=== PATIENT | male | born 1990 | race Caucasian/White ===

== ENCOUNTER 2017-11-02 19:05 | Emergency (ER) | payer OTHER ==
[~2017-11-02] VITALS: Ht 160 cm; Wt 64.0 kg
[2017-11-02 19:19] VITALS: TEMP 36.9; O2SAT 96; Ht 160 cm; Wt 64.0 kg
[2017-11-02] MEDS ORDERED: OXYCODONE/ACETAMINOPHEN 5-325 TAB PO STA (19:30)
--- NOTE | 2017-11-02 20:40 | DIAGNOSTIC IMAGING REPORT ---
THORACIC SPINE 3 VIEWS CLINICAL HISTORY: Fall with thoracic back pain. FINDINGS: AP, lateral, and swimmer's views of the thoracic spine are obtained. No prior studies are available for comparison at the time of dictation. The skeletal structures are well mineralized. There is no radiographic evidence of fracture or malalignment involving the thoracic spine. Vertebral body height and alignment are maintained. The disc spaces are preserved. The transverse processes and pedicles are grossly intact as seen on the frontal view. The imaged lung parenchyma appears clear. IMPRESSION: No acute bony abnormality is seen involving the thoracic spine. Electronically signed by: Sherman Ramirez M.D. 11/02/2017 8:38 PM Dictated Date/Time: 11/02/2017 8:38 PM
--- NOTE | 2017-11-02 20:50 | EMERGENCY ROOM VISIT NOTE ---
History First contact with patient: 19:23 Chief Complaint: BACK INJURY Stated Complaint: FELL DOWN STEPS, HURT BACK History of Present Illness The patient is a 26 year old male who presents to the Emergency Room via private vehicle accompanied by female with complaints of "fell down steps, her back". The patient states that earlier today he was walking down an icy set of steps, when he slipped, and caught himself prior to falling but notes now he has pain in the mid back. He rates the pain at this time as a 6/10. Review of Systems A complete 6-point Review of Systems was discussed with the patient, with pertinent positives and negatives listed in the History of Present Illness. All remaining Review of Systems questions can be considered negative unless otherwise specified. Past Medical/Surgical History No pertinent Family History No pertinent. Social History Smoking Status: Current Every Day Smoker Pt. currently lives locally. Current/Historical Medications Scheduled PRN Oxycodone/Acetaminophen 5MG/325MG (Percocet 5MG/325MG), 1 TAB PO Q6 PRN for Pain Physical Exam Vital Signs Date Time Temp Pulse Resp B/P (MAP) Pulse Ox O2 Delivery O2 Flow Rate FiO2 18 21:20 72 15 118/68 18 19:19 36.9 74 16 129/81 96 Room Air Physical Exam VITAL SIGNS - Vital signs and nursing notes were reviewed. Stable. GENERAL -26-year-old male appearing his stated age who is in no acute distress. Communicates well with provider and answers questions appropriately. SKIN - Without rashes. No petechial rashes. HEAD - NC/AT. NECK - Neck with FROM. No C-spine tenderness. MUSCULOSKELETAL: Minimal tenderness in the thoracic spine and paraspinous muscles are. No superior or inferior tenderness in this region. LUNGS - Chest wall symmetric without accessory muscle use, intercostals retractions, or central cyanosis. Normal vesicular breath sounds CTA B/L. No wheezes, rales, or rhonchi appreciated. CARDIAC - RRR with S1/S2. No murmur, rubs, or gallops appreciated. Medical Decision & Procedures ER Provider Diagnostic Interpretation: THORACIC SPINE 3 VIEWS CLINICAL HISTORY: Fall with thoracic back pain. FINDINGS: AP, lateral, and swimmer's views of the thoracic spine are obtained. No prior studies are available for comparison at the time of dictation. The skeletal structures are well mineralized. There is no radiographic evidence of fracture or malalignment involving the thoracic spine. Vertebral body height and alignment are maintained. The disc spaces are preserved. The transverse processes and pedicles are grossly intact as seen on the frontal view. The imaged lung parenchyma appears clear. IMPRESSION: No acute bony abnormality is seen involving the thoracic spine. Electronically signed by: Sherman Ramirez M.D. 11/02/2017 8:38 PM Dictated Date/Time: 11/02/2017 8:38 PM Medications Administered Medications (Trade) Dose Ordered Sig/Jenna Route Start Time Stop Time Status Last Admin Dose Admin Oxycodone/ Acetaminophen (Percocet 5-325mg Tab) 1 tab NOW STAT PO 11/02/17 19:30 11/02/17 19:31 DC 11/02/17 19:39 1 TAB Medical Decision Patient was seen and evaluated as above. He presents to us today with mid back pain. I suspect he likely has a strain of the musculature however he does have bony tenderness in the region. I did elect to obtain thoracic plain films. These are negative for acute process. I suspect muscle skeletal strain. He was given Percocet for pain as well as a small home pack and prescription. No record was found in the [place] drug monitoring system. He does appear stable for outpatient management. He was educated upon management, educated upon worrisome symptoms which to return, had motions in spite of discharge, and was discharged home in good condition. In evaluation treatment this patient the following differential diagnoses pertaining: Fracture, dislocation, strain, among others. Impression Primary Impression: Strain of thoracic region Departure Information Dispostion Home / Self-Care Condition GOOD Prescriptions Oxycodone/Acetaminophen 5MG/325MG (PERCOCET 5MG/325MG) Tab 1 TAB PO Q6 Y for Pain, #12 TAB For Initial Treatment Prov: Timi Gordon PA-C 11/02/17 Referrals No Doctor, Assigned (PCP) Barney Li D.O. Patient Instructions My [facility] Additional Instructions You have been treated in the Emergency Department for Back Pain. You have received pain medicine in the emergency department which impairs your ability to operate a vehicle. It is illegal for you to drive after receiving these medicines. You have been prescribed PERCOCET to be used for pain control. This is a narcotic medication. You cannot drive or consume alcohol while on this medicine. This medicine should only be used for pain that cannot be controlled with fdxh-eku-cyqwzmh pain medicines. For pain control, you can use the following yznk-jtj-[id number] medicines: - Regular strength (325mg/tab) Tylenol (acetaminophen) 2 tabs every 4-6 hours as needed. Do not exceed 12 tablets in a 24 hour period. Avoid taking more than 3 grams (3000 mg) of Tylenol per day. This includes any other sources of acetaminophen you may take on a regular basis. Please none with the Percocet - Regular strength (200 mg/tab) Advil (ibuprofen) 1-2 tabs every 4-6 hours as needed. Do not exceed a dose of 3200 mg per day. If this is an acute injury, ice can be applied to the area of pain for the first 3 days to help decrease pain and inflammation. After the first 3 days, a heating pad can be used over the area for continued soothing relief. You should schedule a follow-up appointment in 2-3 days with your Primary Care Provider for further evaluation and treatment of your back pain. Return to the Emergency Department if your current symptoms worsen despite treatment course outlined above, or if you develop any of the following symptoms : intractable pain despite aforementioned treatment course, loss of control of your bowel or bladder, numbness or tingling in your groin, or development of a fever.
[2017-11-02] MEDS ORDERED: PERCOCET HOME PACK PO STA (20:58)
[2017-11-02] MEDS ORDERED: OXYC-57 PO (21:00)
[2017-11-02 21:20] VITALS: BP 118/68; PULSE 72
== END 2017-11-02 21:20 | disposition home or self-care (01) ==
LOC: C.EDB 19:07 → C.EDD 21:20
DX: S29.012A Strain of muscle and tendon of back wall of thorax, initial encounter (principal); M54.9 Dorsalgia, unspecified; W00.1XXA Fall from stairs and steps due to ice and snow, initial encounter; F17.210 Nicotine dependence, cigarettes, uncomplicated; Y92.89 Other specified places as the place of occurrence of the external cause

== ENCOUNTER 2017-11-04 18:27 | Emergency (ER) | payer OTHER ==
[~2017-11-04] VITALS: Ht 160 cm; Wt 64.2 kg
[~2017-11-04 18:27] MED LIST: OXYC-57 PO
[2017-11-04 18:42] VITALS: TEMP 36.8; Ht 160 cm; Wt 64.2 kg
[2017-11-04] MEDS ORDERED: ONDANSETRON 4MG OD TAB PO STA (19:00)
[2017-11-04 19:26] LABS: BASO % 0.3 %; BASO ABS # 0.06 K/uL (0-0.2); EOS % 0.5 %; EOS ABS # 0.09 K/uL (0-0.5); HEMATOCRIT 48.1 % (42-52); HEMOGLOBIN 17.4 g/dL (14.0-18.0); IG# 0.04 K/uL (0.00-0.02); MEAN CELL VOLUME 90.9 fL (80-100); MEAN CORPUSCULAR HEMOGLOBIN 32.9 pg (25-34); MEAN CORPUSCULAR HGB CONC 36.2 g/dl (32-36); MEAN PLATELET VOLUME 10.3 fL (7.4-10.4); MONO % 5.5 %; MONO ABS # 0.97 K/uL (0.11-0.59); NEUT % 81.5 %; NEUT ABS # 14.25 K/uL (1.4-6.5); PLATELET COUNT 258 K/uL (130-400); RED CELL DISTRIBUTION WIDTH CV 12.9 % (11.5-14.5); RED CELL DISTRIBUTION WIDTH SD 42.5 fL (36.4-46.3); WHITE BLOOD COUNT 17.51 K/uL (4.8-10.8)
[2017-11-04 19:43] LABS: ALBUMIN 4.4 gm/dl (3.4-5.0); CREATININE 1.11 mg/dl (0.60-1.40); POTASSIUM 3.7 mmol/L (3.5-5.1)
--- NOTE | 2017-11-04 19:44 | DIAGNOSTIC IMAGING REPORT ---
CERVICAL SPINE 3 VIEWS CLINICAL HISTORY: Neck pain. Fall 2 days ago. FINDINGS: AP, lateral, and odontoid views of the cervical spine are obtained. No prior studies are available for comparison at the time of dictation. The skeletal structures are well mineralized. There is no radiographic evidence of fracture or subluxation. The odontoid process and lateral masses appear intact on the open mouth view. The spinolaminar line is preserved. Vertebral body height and alignment are maintained. The spinous processes appear intact. The intervertebral disc spaces are normal. The prevertebral soft tissues are within normal limits. Visualized apical lung parenchyma appears clear. IMPRESSION: There is no radiographic evidence of fracture or subluxation involving the cervical spine. Electronically signed by: Sherman Ramirez M.D. 11/04/2017 7:43 PM Dictated Date/Time: 11/04/2017 7:42 PM
[2017-11-04 19:45] LABS: TOTAL PROTEIN 7.3 gm/dl (6.4-8.2)
--- NOTE | 2017-11-04 19:47 | EMERGENCY ROOM VISIT NOTE ---
History First contact with patient: 18:47 Chief Complaint: NECK PAIN Stated Complaint: "my neck hurts and I'm sick" History of Present Illness The patient is a 26 year old male who presents to the Emergency Room with complaints of neck pain, nausea, vomiting which began today. The patient states he experienced a fall 2 days prior, and was seen in the emergency department. Upon further questioning, the patient did not actually fall, however slipped on ice and twisted, catching himself before he landed on the ground. He denies any head injury. He states this afternoon, he began experiencing neck pain which she associates with the injury early this week. He states he has also been nauseated and vomiting and sleeping throughout the day. He states he did vomit 4 times since proximally 4:00 this afternoon. He has had chills, but denies any known fever. He denies any chest pain, dyspnea, abdominal pain, diarrhea, constipation, cough, coughing up sputum, or congestion. He states he has not been able to keep any food or fluids down. He has taken no medications for his symptoms. Review of Systems A complete 10 point review of systems was reviewed with the patient with pertinent positives and negatives as per history of present illness. All else were negative. Past Medical/Surgical History Back pain, "I don't know" Social History Smoking Status: Current Every Day Smoker Smokeless Tobacco Use: No Alcohol Use: none Drug Use: none Marital Status: in relationship Housing Status: lives with significant other Current/Historical Medications Scheduled Ondasetron Odt (Zofran Odt), 4 MG SL Q6H Scheduled PRN Oxycodone/Acetaminophen 5MG/325MG (Percocet 5MG/325MG), 1 TAB PO Q6 PRN for Pain Physical Exam Vital Signs Date Time Temp Pulse Resp B/P (MAP) Pulse Ox O2 Delivery O2 Flow Rate FiO2 11/04/17 20:33 67 16 132/78 98 Room Air 11/04/17 18:42 36.8 80 20 122/76 97 Room Air Physical Exam VITALS: Vitals are noted on the nurse's note and reviewed by myself. Vital signs stable. GENERAL: This is a 26-year-old white male, ill-appearing, but nontoxic, in no acute distress, nondiaphoretic, well-developed well-nourished. SKIN: The skin was without rashes, erythema, edema, or bruising. There is no tenting of the skin. Capillary reflex less than 2 seconds. HEAD: Normocephalic atraumatic. EARS: External auditory canals clear, tympanic membranes pearly irving without erythema or effusion bilaterally. EYES: Pupils equal round and reactive to light and accommodation. Conjunctivae without injection, sclerae without icterus. Extraocular movements intact. NOSE: Patent, turbinates without inflammation or discharge. No sinus tenderness. MOUTH: Mucous membranes moist. Tonsils are not enlarged. Pharynx without erythema or exudate. Uvula midline. Airway patent. Tongue does not deviate. NECK: Supple without nuchal rigidity, but he is complaining of tenderness in the cervical spine and paraspinous muscles. No lymphadenopathy. No thyromegaly. No JVD. HEART: Regular rate and rhythm without murmurs gallops or rubs. LUNGS: Clear to auscultation bilaterally without wheezes, rales or rhonchi. No dullness to percussion. No retractions or accessory muscle use. ABDOMEN: Positive bowel sounds x 4. Normal tympanic percussion. Soft, nontender, without masses or organomegaly. Denney sign negative. No guarding or rebound tenderness. MUSCULOSKELETAL: No muscle atrophy, erythema, or edema noted. Full range of motion without joint tenderness in all extremities. No tenderness to palpation. Normal gait. Strength 5/5 throughout. NEURO: Patient was alert and oriented to person place and time. Normal sensation to light and sharp touch. Deep tendon reflexes 2+ throughout. No focal neurological deficits. Medical Decision & Procedures ER Provider Diagnostic Interpretation: CBC did show leukocytosis of 17,000. No anemia. CMP did not show any significant renal, hepatic, electrolyte abnormalities. Urinalysis was negative for blood or signs of infection CERVICAL SPINE 3 VIEWS CLINICAL HISTORY: Neck pain. Fall 2 days ago. FINDINGS: AP, lateral, and odontoid views of the cervical spine are obtained. No prior studies are available for comparison at the time of dictation. The skeletal structures are well mineralized. There is no radiographic evidence of fracture or subluxation. The odontoid process and lateral masses appear intact on the open mouth view. The spinolaminar line is preserved. Vertebral body height and alignment are maintained. The spinous processes appear intact. The intervertebral disc spaces are normal. The prevertebral soft tissues are within normal limits. Visualized apical lung parenchyma appears clear. IMPRESSION: There is no radiographic evidence of fracture or subluxation involving the cervical spine. Electronically signed by: Sherman Ramirez M.D. 11/04/2017 7:43 PM Dictated Date/Time: 11/04/2017 7:42 PM Laboratory Results 11/04/17 19:05 Red Blood Count 5.29, Mean Corpuscular Volume 90.9, Mean Corpuscular Hemoglobin 32.9, Mean Corpuscular Hemoglobin Concent 36.2, Mean Platelet Volume 10.3, Neutrophils (%) (Auto) 81.5, Lymphocytes (%) (Auto) 12.0, Monocytes (%) (Auto) 5.5, Eosinophils (%) (Auto) 0.5, Basophils (%) (Auto) 0.3, Neutrophils # (Auto) 14.25, Lymphocytes # (Auto) 2.10, Monocytes # (Auto) 0.97, Eosinophils # (Auto) 0.09, Basophils # (Auto) 0.06 11/04/17 19:05 Test 11/04/17 19:05 White Blood Count 17.51 K/uL (4.8-10.8) Red Blood Count 5.29 M/uL (4.7-6.1) Hemoglobin 17.4 g/dL (14.0-18.0) Hematocrit 48.1 % (42-52) Mean Corpuscular Volume 90.9 fL (80-100) Mean Corpuscular Hemoglobin 32.9 pg (25-34) Mean Corpuscular Hemoglobin Concent 36.2 g/dl (32-36) Platelet Count 258 K/uL (130-400) Mean Platelet Volume 10.3 fL (7.4-10.4) Neutrophils (%) (Auto) 81.5 % Lymphocytes (%) (Auto) 12.0 % Monocytes (%) (Auto) 5.5 % Eosinophils (%) (Auto) 0.5 % Basophils (%) (Auto) 0.3 % Neutrophils # (Auto) 14.25 K/uL (1.4-6.5) Lymphocytes # (Auto) 2.10 K/uL (1.2-3.4) Monocytes # (Auto) 0.97 K/uL (0.11-0.59) Eosinophils # (Auto) 0.09 K/uL (0-0.5) Basophils # (Auto) 0.06 K/uL (0-0.2) RDW Standard Deviation 42.5 fL (36.4-46.3) RDW Coefficient of Variation 12.9 % (11.5-14.5) Immature Granulocyte % (Auto) 0.2 % Immature Granulocyte # (Auto) 0.04 K/uL (0.00-0.02) Anion Gap 5.0 mmol/L (3-11) Est Creatinine Clear Calc Drug Dose 80.4 ml/min Estimated GFR () 104.9 Estimated GFR (Non- 90.5 BUN/Creatinine Ratio 8.7 (10-20) Calcium Level 9.0 mg/dl (8.5-10.1) Total Bilirubin 0.2 mg/dl (0.2-1) Aspartate Amino Transf (AST/SGOT) 11 U/L (15-37) Alanine Aminotransferase (ALT/SGPT) 23 U/L (12-78) Alkaline Phosphatase 83 U/L (45-117) Total Protein 7.3 gm/dl (6.4-8.2) Albumin 4.4 gm/dl (3.4-5.0) Globulin 2.9 gm/dl (2.5-4.0) Albumin/Globulin Ratio 1.5 (0.9-2) Medications Administered Medications (Trade) Dose Ordered Sig/Jenna Route Start Time Stop Time Status Last Admin Dose Admin Ondansetron HCl (Zofran Odt) 4 mg NOW STAT PO 11/04/17 19:00 11/04/17 19:02 DC 11/04/17 19:04 4 MG ED Course The patient was seen and evaluated as above. Prior to exiting the room, the patient states he is very thirsty and does ask for a drink. He was provided with ice chips, as he has been nauseated and vomiting throughout the day. IV access was obtained, labs drawn. The patient was advised to provide a urine sample. Cervical spine x-ray was ordered and performed. This was reviewed by myself and the radiologist. I discussed the case with Dr. Villanueva, who did see and evaluate the patient. At this time, the patient excluding to her that he was told he had an elevated white blood cell count while at [facility] several months ago. Discharge instructions were reviewed, and the patient was discharged home in good condition. Medical Decision Etiologies such as cervicalgia, torticollis, abscess, osteomyelitis, fracture, metastatic disease, infection, renal colic, gastrointestinal, gastroenteritis, food poisoning, pancreatitis, cholecystitis, appendicitis, diverticulitis, as well as others were entertained. This is a 26-year-old male patient presents to the emergency department today complaining of neck pain and nausea with vomiting. The patient states the neck pain began earlier today, then he began experiencing nausea with vomiting and chills, and states he vomited 4 times in approximately 2-3 hours. He was only vomiting with food or liquid. He states he has not had much of an appetite today, but denies other infectious symptoms. While here in the emergency department, the patient was given Zofran, and did not vomit. I suspect the nausea and vomiting is related to a gastroenteritis versus food poisoning, and discussed this with the patient. I suspect his neck pain is related to a muscle strain from the near fall a few days ago. His symptoms did improve with Zofran, and when I went to reevaluate the patient, he was standing in the doorway and pacing throughout the room. The patient did request a drink, and was given some ice chips. He was are given a narcotic prescription 2 days ago, which he filled yesterday, per PDMP. He was given 3 days of narcotic pain medicine at that time, so he will not receive any more from [facility]. The patient was encouraged to follow up with a primary care provider regarding his concerns. [place] Drug Monitoring Program Search Results: patient reviewed within database Medication Reconcilliation Current Medication List: was personally reviewed by mo Blood Pressure Screening Patient's blood pressure: Normal blood pressure Impression Primary Impression: Cervicalgia Additional Impression: Nausea & vomiting Departure Information Dispostion Home / Self-Care Condition GOOD Prescriptions Ondasetron Odt (ZOFRAN ODT) 4 Mg Tab 4 MG SL Q6H for Nausea, #6 TAB Prov: Iris Brown PA-C 11/04/17 Referrals No Doctor, Assigned (PCP) Patient Instructions ED Gastroenteritis Viral, ED Neck Back Pain General, My [facility] Additional Instructions You have been treated in the Emergency Department for Neck Pain, nausea, and vomiting. I suspect a muscular strain of the neck and possible viral gastroenteritis as the cause of the nausea and vomiting. You have been prescribed Zofran to be used for any nausea or vomiting. Take as prescribed. You may take the Percocet you were previously prescribed for your neck pain as directed. This is a narcotic medication. You cannot drive or consume alcohol while on this medicine. This medicine should only be used for pain that cannot be controlled with yiag-ile-ufqyjwx pain medicines. For pain control, you can use the following kxot-jxi-hrrnukd medicines (if >12 yo): Ibuprofen(Motrin, Advil) may be used for fever or pain. Use 600mg every six hours as needed. Take with food. Avoid using more than 2400mg in a 24 hour period. Do not use 2400mg per day for more than three consecutive days without physician direction. Prolonged inappropriate use can lead to stomach upset or ulcers. (AND/OR) Acetaminophen(Tylenol) may be used for fever or pain. Use 1000mg every six hours as needed. Avoid using more than 3000mg in a 24 hour period. If this is an acute injury, ice can be applied to the area of pain for the first 3 days to help decrease pain and inflammation. After the first 3 days, a heating pad can be used over the area for continued soothing relief. You should schedule a follow-up appointment in 2-3 days with your Primary Care Provider for further evaluation and treatment of your neck pain. Return to the Emergency Department if your current symptoms worsen despite treatment course outlined above, or if you develop any of the following symptoms : intractable pain despite aforementioned treatment course, facial droop, slurred speech, unilateral weakness, abdominal pain, worsening nausea or vomiting, significant diarrhea, or worsening of your current symptoms. Problem Qualifiers Additional Impression: Nausea & vomiting Vomiting type: unspecified Vomiting Intractability: non-intractable Qualified Codes: R11.2 - Nausea with vomiting, unspecified
[2017-11-04] MEDS ORDERED: ONDA4TAB10 SL (20:26)
[2017-11-04 20:33] VITALS: BP 132/78; PULSE 67; O2SAT 98
== END 2017-11-04 20:35 | disposition home or self-care (01) ==
LOC: C.EDB 18:28 → C.EDC 20:35
DX: M54.2 Cervicalgia (principal); R11.2 Nausea with vomiting, unspecified; F17.200 Nicotine dependence, unspecified, uncomplicated

== ENCOUNTER 2017-12-12 22:13 | Emergency (ER) | payer OTHER ==
[~2017-12-12] VITALS: Ht 160 cm; Wt 64.9 kg
[~2017-12-12 22:13] MED LIST changes: +ONDA4TAB10 SL
[2017-12-12 22:16] VITALS: TEMP 36.9; Ht 160 cm; Wt 64.9 kg
[2017-12-12] MEDS ORDERED: ALUMINUM/MAGNESIUM SUSP 30 ML UDC PO STA (22:21)
[2017-12-12] MEDS ORDERED: METOCLOPRAMIDE HCL INJ 5 MG/ML 2 ML VIAL IV STA (22:21)
[2017-12-12] MEDS ORDERED: LIDOCAINE HCL 2% VISC SOLN 20 ML UDC PO STA (22:21)
[2017-12-12] MEDS ORDERED: DiphenhydrAMINE HCL 50 MG/ML VIAL IV STA (22:21)
[2017-12-12] MEDS ORDERED: SODIUM CHLORIDE 0.9% 1000ML 1,000 ML IV STA (22:21)
[2017-12-12 22:58] LABS: BASO % 0.5 %; BASO ABS # 0.07 K/uL (0-0.2); EOS % 1.2 %; EOS ABS # 0.16 K/uL (0-0.5); HEMATOCRIT 45.3 % (42-52); HEMOGLOBIN 16.5 g/dL (14.0-18.0); IG# 0.02 K/uL (0.00-0.02); LYMPH % 29.4 %; LYMPH ABS # 4.07 K/uL (1.2-3.4); MEAN CORPUSCULAR HGB CONC 36.4 g/dl (32-36); MEAN PLATELET VOLUME 10.6 fL (7.4-10.4); MONO % 8.1 %; MONO ABS # 1.12 K/uL (0.11-0.59); NEUT % 60.7 %; NEUT ABS # 8.42 K/uL (1.4-6.5); PLATELET COUNT 259 K/uL (130-400); RED CELL DISTRIBUTION WIDTH CV 12.8 % (11.5-14.5); WHITE BLOOD COUNT 13.86 K/uL (4.8-10.8)
--- NOTE | 2017-12-12 23:02 | DIAGNOSTIC IMAGING REPORT ---
CT OF THE HEAD WITHOUT CONTRAST CLINICAL HISTORY: Headache. COMPARISON STUDY: No previous studies for comparison. CT DOSE: 537.48 mGy.cm TECHNIQUE: Helical axial images of the head were obtained without IV contrast. Automated exposure control was utilized for the study. A dose lowering technique was utilized adhering to the principles of ALARA. FINDINGS: No acute intracranial hemorrhage, midline shift or mass effect is present. Brain volume is normal. Ventricular system is normal. The basilar cisterns are patent. There are no extra-axial collections. Beal-white differentiation is maintained. There are no findings to suggest acute dural sinus thrombosis or acute territorial infarct. There are no significant calvarial abnormalities. Visualized portions of the sinuses and the mastoid air cells are clear. IMPRESSION: No acute intracranial findings. Electronically signed by: Av Richardson M.D. 12/12/2017 11:01 PM Dictated Date/Time: 12/12/2017 10:57 PM
[2017-12-12 23:21] LABS: ALBUMIN 4.3 gm/dl (3.4-5.0); ALT/SGPT 22 U/L (12-78); BLOOD UREA NITROGEN 5 mg/dl (7-18); CALCIUM 8.6 mg/dl (8.5-10.1); CARBON DIOXIDE 27 mmol/L (21-32); CREATININE 1.24 mg/dl (0.60-1.40); GLUCOSE 66 mg/dl (70-99); POTASSIUM 3.4 mmol/L (3.5-5.1); SODIUM 139 mmol/L (136-145)
[2017-12-12 23:32] LABS: ALKALINE PHOSPHATASE 65 U/L (45-117); AST/SGOT 12 U/L (15-37); TOTAL PROTEIN 7.2 gm/dl (6.4-8.2)
[2017-12-12] MEDS ORDERED: POTASSIUM CHLORIDE 10 MEQ TABCR PO STA (23:52)
[2017-12-13 00:04] VITALS: BP 112/61; PULSE 68; O2SAT 98
--- NOTE | 2017-12-13 00:12 | EMERGENCY ROOM VISIT NOTE ---
History First contact with patient: 22:17 Chief Complaint: HEADACHE Stated Complaint: HEADACHE FOR 2 DAYS, CAUSING AGITATION History of Present Illness The patient is a 27 year old male who presents to the Emergency Room with complaints of occasional headache upset stomach and feeling agitated for the past few days. Patient denies sudden onset of headache, neck stiffness, fever, chills, cough, congestion, vomiting, diarrhea, chest pain, dyspnea, localized weakness, lightheadedness, dizziness. He is tolerating p.o. fluids and food. No drug use. No alcohol use. Review of Systems An 10 system review of systems was completed with positives and pertinent negatives listed in the HPI. Past Medical/Surgical History Back pain Social History Smoking Status: Current Every Day Smoker Alcohol Use: none Drug Use: none Marital Status: in relationship Housing Status: lives with significant other Current/Historical Medications No Active Prescriptions or Reported Meds Physical Exam Vital Signs Date Time Temp Pulse Resp B/P (MAP) Pulse Ox O2 Delivery O2 Flow Rate FiO2 12/13/17 00:04 68 18 112/61 98 Room Air 12/12/17 22:16 36.9 78 18 128/78 97 Room Air Physical Exam VITALS: Vitals are noted on the nurse's note and reviewed by myself. Vital signs stable. GENERAL: White male, in no acute distress, nondiaphoretic, well-developed well- nourished. SKIN: The skin was without rashes, erythema, edema, or bruising. There is no tenting of the skin. Capillary reflex less than 2 seconds. HEAD: Normocephalic atraumatic. EARS: External auditory canals clear, tympanic membranes pearly beal without erythema or effusion bilaterally. EYES: Pupils equal round and reactive to light and accommodation. Conjunctivae without injection, sclerae without icterus. Extraocular movements intact. NOSE: Patent, turbinates without inflammation or discharge. No sinus tenderness. MOUTH: Mucous membranes moist. Pharynx without erythema or exudate. Uvula midline. Airway patent. Tongue does not deviate. NECK: Supple without nuchal rigidity. No lymphadenopathy. No thyromegaly. Cervical spine is nontender. No JVD. HEART: Regular rate and rhythm without murmurs gallops or rubs. LUNGS: Clear to auscultation bilaterally without wheezes, rales or rhonchi. No dullness to percussion. No retractions or accessory muscle use. ABDOMEN: Positive bowel sounds x 4. Normal tympanic percussion. Soft, nontender, without masses or organomegaly. Denney sign negative. No guarding or rebound tenderness. MUSCULOSKELETAL: No muscle atrophy, erythema, or edema noted. NEURO: Patient was alert and oriented to person place and time. Normal sensation to light and sharp touch. Cranial nerves II through XII grossly intact. No prior drift. Cerebellar exam intact. No focal neurological deficits. Medical Decision & Procedures Laboratory Results 12/12/17 22:41 Red Blood Count 5.15, Mean Corpuscular Volume 88.0, Mean Corpuscular Hemoglobin 32.0, Mean Corpuscular Hemoglobin Concent 36.4, Mean Platelet Volume 10.6, Neutrophils (%) (Auto) 60.7, Lymphocytes (%) (Auto) 29.4, Monocytes (%) (Auto) 8.1, Eosinophils (%) (Auto) 1.2, Basophils (%) (Auto) 0.5, Neutrophils # (Auto) 8.42, Lymphocytes # (Auto) 4.07, Monocytes # (Auto) 1.12, Eosinophils # (Auto) 0.16, Basophils # (Auto) 0.07 12/12/17 22:41 Test 12/12/17 22:41 White Blood Count 13.86 K/uL (4.8-10.8) Red Blood Count 5.15 M/uL (4.7-6.1) Hemoglobin 16.5 g/dL (14.0-18.0) Hematocrit 45.3 % (42-52) Mean Corpuscular Volume 88.0 fL (80-100) Mean Corpuscular Hemoglobin 32.0 pg (25-34) Mean Corpuscular Hemoglobin Concent 36.4 g/dl (32-36) Platelet Count 259 K/uL (130-400) Mean Platelet Volume 10.6 fL (7.4-10.4) Neutrophils (%) (Auto) 60.7 % Lymphocytes (%) (Auto) 29.4 % Monocytes (%) (Auto) 8.1 % Eosinophils (%) (Auto) 1.2 % Basophils (%) (Auto) 0.5 % Neutrophils # (Auto) 8.42 K/uL (1.4-6.5) Lymphocytes # (Auto) 4.07 K/uL (1.2-3.4) Monocytes # (Auto) 1.12 K/uL (0.11-0.59) Eosinophils # (Auto) 0.16 K/uL (0-0.5) Basophils # (Auto) 0.07 K/uL (0-0.2) RDW Standard Deviation 41.0 fL (36.4-46.3) RDW Coefficient of Variation 12.8 % (11.5-14.5) Immature Granulocyte % (Auto) 0.1 % Immature Granulocyte # (Auto) 0.02 K/uL (0.00-0.02) Anion Gap 6.0 mmol/L (3-11) Est Creatinine Clear Calc Drug Dose 71.4 ml/min Estimated GFR () 91.1 Estimated GFR (Non- 78.6 BUN/Creatinine Ratio 4.1 (10-20) Calcium Level 8.6 mg/dl (8.5-10.1) Total Bilirubin 0.3 mg/dl (0.2-1) Direct Bilirubin < 0.1 mg/dl (0-0.2) Aspartate Amino Transf (AST/SGOT) 12 U/L (15-37) Alanine Aminotransferase (ALT/SGPT) 22 U/L (12-78) Alkaline Phosphatase 65 U/L (45-117) Total Protein 7.2 gm/dl (6.4-8.2) Albumin 4.3 gm/dl (3.4-5.0) Thyroid Stimulating Hormone (TSH) 2.120 uIu/ml (0.300-4.500) Medications Administered Medications (Trade) Dose Ordered Sig/Jenna Route Start Time Stop Time Status Last Admin Dose Admin Metoclopramide HCl (Reglan Inj) 10 mg NOW STAT IV 12/12/17 22:21 12/12/17 22:23 DC 12/12/17 22:42 10 MG Diphenhydramine HCl (Benadryl Inj) 12.5 mg NOW STAT IV 12/12/17 22:21 12/12/17 22:23 DC 12/12/17 22:42 12.5 MG Sodium Chloride 1,000 ml @ 999 mls/hr Q1H1M STAT IV 12/12/17 22:21 12/12/17 23:21 DC 12/12/17 22:43 999 MLS/HR Lidocaine HCl (Viscous Lidocaine 2% Soln) 10 ml NOW STAT PO 12/12/17 22:21 12/12/17 22:23 DC 12/12/17 22:42 10 ML Al Hydroxide/Mg Hydroxide (Maalox Susp) 30 ml NOW STAT PO 12/12/17 22:21 12/12/17 22:23 DC 12/12/17 22:42 30 ML Potassium Chloride (Klor-Con M10) 20 meq NOW STAT PO 12/12/17 23:52 12/12/17 23:53 DC 12/13/17 00:00 20 MEQ ED Course Prior records/ancillary studies reviewed and summarized above. Nursing notes reviewed. Additional history obtained from girlfriend. The patient's history was concerning fo headache and upset stomach . Differential diagnosis: Etiologies such as metabolic, infection, hypo/hyperglycemia, electrolyte abnormalities, cardiac sources, intracerebral event, toxicologic, neurologic, as well as others were entertained. Physical examination: As above. ER treatment provided: IV Lock GI cocktail, Reglan, Benadryl, peanut better and crackers On reassessment the patient felt better. Diagnostics interpretation by me: The labs revealed mild leukocytosis. No worrisome electrode abnormality. Imaging studies: CLINICAL HISTORY: Headache. COMPARISON STUDY: No previous studies for comparison. CT DOSE: 537.48 mGy.cm TECHNIQUE: Helical axial images of the head were obtained without IV contrast. Automated exposure control was utilized for the study. A dose lowering technique was utilized adhering to the principles of ALARA. FINDINGS: No acute intracranial hemorrhage, midline shift or mass effect is present. Brain volume is normal. Ventricular system is normal. The basilar cisterns are patent. There are no extra-axial collections. Beal-white differentiation is maintained. There are no findings to suggest acute dural sinus thrombosis or acute territorial infarct. There are no significant calvarial abnormalities. Visualized portions of the sinuses and the mastoid air cells are clear. IMPRESSION: No acute intracranial findings. Electronically signed by: Av Richardson M.D. 12/12/2017 11:01 PM Dictated Date/Time: 12/12/2017 10:57 PM Exam and history seem consistent with headache and upset stomach most likely from reflux. Patient felt much better after being medicated as above. He did not have an acute abdomen on exam. He was neurovascularly and neurologically intact. He was given a list of family care doctors and advised to follow-up. He was given food and his blood sugar was repeated and was 99. He was advised to return to the ER immediately for severe headache, weakness, pain, worsening signs or symptoms or as needed. He ambulated out of the air without difficulties with his girlfriend.By the evaluation outlined above emergent etiologies such as infection, electrolyte abnormalities, cardiac sources, intracerebral event, toxologic, neurologic, abnormalities blood glucose, metabolic, as well as others were deemed relatively unlikely. The pt informed about the findings as listed above. All questions were answered and pleased with the treatment. Return instructions were outlined and the patient was discharged in stable condition. Outpatient prescription management: reglan Referral: The patient was referred back to primary care physician for follow-up in 2 to 3 days for a recheck of the current condition. case reviewed with my Attending The chart was completed utilizing [employer] voice recognition software. Grammatical errors, random word insertions, pronoun errors, and incomplete sentences are an occassional consequence of this system due to software limitations, ambient noise, and hardware issues. Any formal questions or concerns about the content, text, or information contained within the body of this dictation should be directly addressed to the physician assistant administrator for clarification. Medical Decision As above Medication Reconcilliation Current Medication List: was personally reviewed by me Blood Pressure Screening Patient's blood pressure: Normal blood pressure Impression Primary Impression: Headache Additional Impressions: Hypokalemia Acid reflux Departure Information Dispostion Home / Self-Care Condition GOOD Prescriptions No Active Prescriptions or Reported Meds Referrals No Doctor, Assigned (PCP) Patient Instructions My [facility] Additional Instructions DO NOT drive, drink alcohol, operate machinery, or perform dangerous activities today. You were given medications in the ER that can affect your ability to safely function or operate a vehicle. Reglan(metoclopramide) tablets 10mg: Take one every six hours as needed for nausea. Avoid alcohol, operating machinery or dangerous equipment, working on ladders or roofs, DRIVING, or situations where being under the influence may be dangerous. Acetaminophen(Tylenol) may be used for fever or pain. Use 1000mg every six hours as needed. Avoid using more than 3000mg in a 24 hour period. Rest and drink plenty of fluids as tolerated. Slow sips of water or sports drinks are recommended instead of large amounts all at once. Continue current medications. Once your stomach is settled start with a clear liquid diet (jello, soup broth, etc.) and then advance as tolerated. You should avoid full, heavy meals for about 24 hrs from the time your symptoms resolved. Return to the ER for persistent vomiting, fevers, abdominal pain, chest pains, difficulty breathing, black or bloody stools, worsening of your condition, or as needed. Follow up with your primary physician in 2-3 days for a recheck of your current condition. Problem Qualifiers Primary Impression: Headache Headache type: unspecified Headache chronicity pattern: acute headache Intractability: not intractable Qualified Codes: R51 - Headache
[2017-12-13] MEDS ORDERED: METO1TAB55 PO (00:13)
== END 2017-12-13 00:27 | disposition home or self-care (01) ==
LOC: C.EDB 22:16 → C.EDC 12-13 00:27
DX: R51 Headache (principal); E87.6 Hypokalemia; K21.9 Gastro-esophageal reflux disease without esophagitis; F17.210 Nicotine dependence, cigarettes, uncomplicated

== ENCOUNTER 2017-12-14 20:44 | Emergency (ER) | payer OTHER ==
[~2017-12-14] VITALS: Ht 160 cm; Wt 63.0 kg
[~2017-12-14 20:44] MED LIST changes: +METO1TAB55 PO; -ONDA4TAB10 SL; -OXYC-57 PO
[2017-12-14 20:51] VITALS: TEMP 37; Ht 160 cm; Wt 63.0 kg
[2017-12-14] MEDS: KETOROLAC TROMETHAMINE 60 MG/2 ML VIAL IM STA ×2 (21:43→21:57)
[2017-12-14] MEDS: PROCHLORPERAZINE 5 MG/ML 2 ML VIAL IM STA ×2 (21:43→21:58)
[2017-12-14] MEDS: DiphenhydrAMINE HCL 50 MG/ML VIAL IM STA ×2 (21:43→21:58)
[2017-12-14 22:21] VITALS: BP 121/68; PULSE 77; O2SAT 98
--- NOTE | 2017-12-15 04:47 | EMERGENCY ROOM VISIT NOTE ---
History First contact with patient: 21:33 Chief Complaint: HEADACHE Stated Complaint: SEVERE HEADACHE,GETTING AGITATED EASILY History of Present Illness The patient is a 27 year old male who presents to the Emergency Room with complaints of severe migraine headache for the past few days. The patient reports a history of migraines in the past. This is not the worst headache of his life. He was seen at this facility about 2 days ago where her work and CT scan did not reveal etiology of his symptoms. The patient states that he was treated here, and felt well for about 12 hours after discharge. He states his symptoms returned and her back to her they were prior to coming into the ER. The patient has not attempted to follow with his primary care physician. He has not had fever or chills. No neck pain or vomiting. No photophobia. He rates his discomfort a 9/10. Review of Systems More than 10 systems were reviewed and otherwise negative with the exception of history of present illness. Past Medical/Surgical History History of migraines Family History No pertinent family history Social History Smoking Status: Current Every Day Smoker Alcohol Use: none Drug Use: none Marital Status: in relationship Housing Status: lives with significant other Current/Historical Medications Scheduled Metoclopramide Hcl (Reglan), 10 MG PO Q6 Physical Exam Vital Signs Date Time Temp Pulse Resp B/P (MAP) Pulse Ox O2 Delivery O2 Flow Rate FiO2 12/14/17 22:21 77 18 121/68 98 12/14/17 20:51 37.0 71 18 126/76 97 Room Air Physical Exam VITALS: Vitals are noted on the nurse's note and reviewed by myself. Vital signs stable. GENERAL: Well-developed, well-nourished, male, who is in no acute distress and resting comfortably. Patient is cooperative with the examination. HEAD: Normocephalic atraumatic. EARS: External ear normal. External auditory canals clear, tympanic membranes pearly irving without erythema or effusion bilaterally. EYES: Pupils equal round and reactive to light and accommodation. Conjunctivae without injection, sclerae without icterus. Extraocular movements intact. NOSE: Patent, turbinates without inflammation or discharge. MOUTH: Mucous membranes moist. Tonsils are not enlarged. Pharynx without erythema, blood, or exudate. Uvula midline. Airway patent. NECK: Supple without nuchal rigidity. No lymphadenopathy. No thyromegaly. Cervical spine is nontender. HEART: Regular rate and rhythm without murmurs gallops or rubs. LUNGS: Clear to auscultation bilaterally without wheezes, rales or rhonchi. No retractions or accessory muscle use. ABDOMEN: Positive normal bowel sounds x 4. Soft, nontender, without masses or organomegaly. No guarding or rebound tenderness. MUSCULOSKELETAL: No muscle atrophy, erythema, or edema noted. Full range of motion without joint tenderness in all extremities. No tenderness to palpation. Normal gait. Strength 5/5 throughout. NEURO: Patient was alert and oriented to person place and time. CN II through XII grossly intact. No focal neurological deficits. Deep tendon reflexes 2+ throughout. SKIN: The skin was without rashes, erythema, edema, or bruising. Capillary refill less than 2 seconds. Medical Decision & Procedures ED Course Physical exam and history were performed. Nursing notes, EMR, and Medication List were personally reviewed. Patient appears to have headache symptoms for the past several days. He was previously evaluated in the department where CT scan and blood work was essentially normal. On examination today the patient is without signs of meningitis or encephalitis. He overall appears in no distress. I discussed options of care with the patient, and placed orders for IM Toradol, IM Benadryl , and IM Compazine. The patient discharge instructions were completed. Nursing alerted me that the patient was refusing these interventions. I explained to the patient that no further intervention would be provided. The patient was very dissatisfied with this. He elected to leave the department without any intervention. After the patient's interaction today I have strong concern for drug-seeking behavior. We will need to continue to monitor his visits in the future. The chart was completed utilizing [employer] Voice Recognition Software. Grammatical errors, random word insertions, pronoun errors, and incomplete sentences are an occasional consequence of this system due to software limitations, ambient noise, and hardware issues. Any formal questions or concerns about the content, text, or information contained within the body of this dictation should be directly addressed to the provider for clarification. . Medical Decision The differential diagnosis includes, but is not limited to: acute intracranial bleed, meningitis, encephalitis, mass or mass effect, sinusitis, infection, tumor, headache, temporal arteritis and carbon monoxide exposure, and migraine. Impression Primary Impression: Headache Departure Information Dispostion Home / Self-Care Condition GOOD Referrals No Doctor, Assigned (PCP) Forms HOME CARE DOCUMENTATION FORM, IMPORTANT VISIT INFORMATION Patient Instructions My [facility] Additional Instructions You were seen and evaluated today on an emergency basis only. This is not a substitute for, or an effort to provide, complete comprehensive medical care. It is not possible to recognize and treat all injuries or illnesses in a single emergency department visit. For this reason it is recommended that you followup with your primary care physician or neurologist this week for ongoing care and evaluation. DO NOT drive, drink alcohol, operate machinery, or perform dangerous activities today. You were given medications in the ER that can affect your ability to safely function or operate a vehicle. Rest today in a quiet, peaceful, dark environment and get a full 8-10 hrs of sleep tonight. Avoid loud noises, smoke/smoking, alcohol, bright lights, stress, or physical exertion today to minimize the chance the headache may return. Continue current medications. Ibuprofen(Motrin, Advil) may be used for fever or pain. Use 600mg every six hours as needed. Take with food. Avoid using more than 2400mg in a 24 hour period. Do not use 2400mg per day for more than three consecutive days without physician direction. Prolonged inappropriate use can lead to stomach upset or ulcers. (AND/OR) Acetaminophen(Tylenol) may be used for fever or pain. Use 1000mg every six hours as needed. Avoid using more than 4000mg in a 24 hour period. Return to the ER for passing out, worsening headache, vision problems, neck stiffness/pain, fevers, vomiting, worsening of your condition, or as needed.
== END 2017-12-14 22:21 | disposition home or self-care (01) ==
LOC: C.EDB 20:45
DX: R51 Headache (principal); F17.200 Nicotine dependence, unspecified, uncomplicated; Z86.69 Personal history of other diseases of the nervous system and sense organs

== ENCOUNTER 2018-01-25 21:02 | Emergency (ER) | payer OTHER ==
[~2018-01-25] VITALS: Ht 160 cm; Wt 61.9 kg
[2018-01-25 21:20] VITALS: TEMP 36.8; Ht 160 cm; Wt 61.9 kg
[2018-01-25] MEDS ORDERED: KETOROLAC TROMETHAMINE 30 MG/ML VIAL IV STA (21:29)
[2018-01-25 21:37] VITALS: O2SAT 97
[2018-01-25 21:41] LABS: EOS % 2.4 %; EOS ABS # 0.24 K/uL (0-0.5); HEMATOCRIT 48.6 % (42-52); HEMOGLOBIN 18.2 g/dL (14.0-18.0); IG# 0.02 K/uL (0.00-0.02); LYMPH % 37.3 %; LYMPH ABS # 3.74 K/uL (1.2-3.4); MEAN CORPUSCULAR HGB CONC 37.4 g/dl (32-36); MEAN PLATELET VOLUME 10.9 fL (7.4-10.4); MONO % 7.5 %; MONO ABS # 0.75 K/uL (0.11-0.59); NEUT % 51.6 %; NEUT ABS # 5.19 K/uL (1.4-6.5); PLATELET COUNT 227 K/uL (130-400); RED CELL DISTRIBUTION WIDTH CV 12.5 % (11.5-14.5); RED CELL DISTRIBUTION WIDTH SD 39.7 fL (36.4-46.3); WHITE BLOOD COUNT 10.04 K/uL (4.8-10.8)
[2018-01-25 22:05] LABS: ALBUMIN 4.4 gm/dl (3.4-5.0); ALT/SGPT 27 U/L (12-78); BLOOD UREA NITROGEN 7 mg/dl (7-18); CALCIUM 8.8 mg/dl (8.5-10.1); CARBON DIOXIDE 27 mmol/L (21-32); CREATININE 1.24 mg/dl (0.60-1.40); GLUCOSE 118 mg/dl (70-99); LIPASE 86 U/L (73-393); POTASSIUM 3.6 mmol/L (3.5-5.1); SODIUM 138 mmol/L (136-145)
[2018-01-25 22:10] LABS: ALKALINE PHOSPHATASE 76 U/L (45-117); AST/SGOT 19 U/L (15-37); TOTAL PROTEIN 7.2 gm/dl (6.4-8.2)
--- NOTE | 2018-01-25 22:14 | DIAGNOSTIC IMAGING REPORT ---
CHEST ONE VIEW PORTABLE HISTORY: Atypical CHEST PAIN COMPARISON: None. FINDINGS: The lungs are clear. Cardiac silhouette is normal in size. No pleural effusions. No pneumothorax. IMPRESSION: No acute process. Electronically signed by: Olegario Ramirez M.D. 01/25/2018 10:13 PM Dictated Date/Time: 01/25/2018 10:12 PM
[2018-01-25 23:17] VITALS: BP 127/63; PULSE 69; O2SAT 97
--- NOTE | 2018-01-26 03:10 | EMERGENCY ROOM VISIT NOTE ---
History First contact with patient: 21:23 Chief Complaint: CARDIAC ASSESSMENT Stated Complaint: CHEST PAIN/LOWER BACK PAIN Nursing Triage Summary: Bilateral non radiating CP for a couple of days. When asked if he has SOB he states "a little". No other associated symptoms. History of Present Illness The patient is a 27 year old male who presents to the Emergency Room with complaints of anterior chest pain for the past day that is worse with movement and palpation better with rest with low back pain after he got scraped by plastic in the bath tube while washing his dog. Patient does smoke. Patient states he is mildly short of breath. No family history of heart disease or blood clots. Patient denies exertional chest pain, fever, chills, cough, congestion, numbness, tingling, abdominal pain, leg pain or swelling, diaphoresis. No recent travel. No prior history of blood pressure, cholesterol diabetes. No drug use Review of Systems An 10 system review of systems was completed with positives and pertinent negatives listed in the HPI. Past Medical/Surgical History Migraines Social History Smoking Status: Current Every Day Smoker Alcohol Use: none Drug Use: none Marital Status: in relationship Housing Status: lives with significant other Current/Historical Medications No Active Prescriptions or Reported Meds Physical Exam Vital Signs Date Time Temp Pulse Resp B/P (MAP) Pulse Ox O2 Delivery O2 Flow Rate FiO2 01/25/18 23:17 69 19 127/63 97 01/25/18 23:08 69 19 127/63 97 Room Air 01/25/18 21:37 83 01/25/18 21:37 97 Room Air 01/25/18 21:37 97 Room Air 01/25/18 21:37 97 Room Air 01/25/18 21:20 36.8 88 20 117/69 96 Room Air Physical Exam VITALS: Vitals are noted on the nurse's note and reviewed by myself. Vital signs stable. GENERAL: Pleasant male tobacco odor, in no acute distress, nondiaphoretic, well- developed well-nourished. SKIN: The skin was without rashes, erythema, edema, or bruising. There is no tenting of the skin. Capillary reflex less than 2 seconds. HEAD: Normocephalic atraumatic. EARS: External auditory canals clear, tympanic membranes pearly irving without erythema or effusion bilaterally. EYES: Pupils equal round and reactive to light and accommodation. Conjunctivae without injection, sclerae without icterus. Extraocular movements intact. NOSE: Patent, turbinates without inflammation or discharge. MOUTH: Mucous membranes moist. Pharynx without erythema or exudate. Uvula midline. Airway patent. Tongue does not deviate. NECK: Supple without nuchal rigidity. No lymphadenopathy. No thyromegaly. Cervical spine is nontender. No JVD. HEART: Regular rate and rhythm without murmurs gallops or rubs. Chest tender to palpation easily reproducing symptoms LUNGS: Clear to auscultation bilaterally without wheezes, rales or rhonchi. No retractions or accessory muscle use. ABDOMEN: Positive bowel sounds x 4. Normal tympanic percussion. Soft, nontender, without masses or organomegaly. Denney sign negative. No guarding or rebound tenderness. No CVA tenderness MUSCULOSKELETAL: No muscle atrophy, erythema, or edema noted. NEURO: Patient was alert and oriented to person place and time. Normal sensation to light and sharp touch. No focal neurological deficits. Medical Decision & Procedures Laboratory Results 01/25/18 21:30 Red Blood Count 5.52, Mean Corpuscular Volume 88.0, Mean Corpuscular Hemoglobin 33.0, Mean Corpuscular Hemoglobin Concent 37.4, Mean Platelet Volume 10.9, Neutrophils (%) (Auto) 51.6, Lymphocytes (%) (Auto) 37.3, Monocytes (%) (Auto) 7.5, Eosinophils (%) (Auto) 2.4, Basophils (%) (Auto) 1.0, Neutrophils # (Auto) 5.19, Lymphocytes # (Auto) 3.74, Monocytes # (Auto) 0.75, Eosinophils # (Auto) 0.24, Basophils # (Auto) 0.10 01/25/18 21:30 Test 01/25/18 21:30 01/25/18 21:44 White Blood Count 10.04 K/uL (4.8-10.8) Red Blood Count 5.52 M/uL (4.7-6.1) Hemoglobin 18.2 g/dL (14.0-18.0) Hematocrit 48.6 % (42-52) Mean Corpuscular Volume 88.0 fL (80-100) Mean Corpuscular Hemoglobin 33.0 pg (25-34) Mean Corpuscular Hemoglobin Concent 37.4 g/dl (32-36) Platelet Count 227 K/uL (130-400) Mean Platelet Volume 10.9 fL (7.4-10.4) Neutrophils (%) (Auto) 51.6 % Lymphocytes (%) (Auto) 37.3 % Monocytes (%) (Auto) 7.5 % Eosinophils (%) (Auto) 2.4 % Basophils (%) (Auto) 1.0 % Neutrophils # (Auto) 5.19 K/uL (1.4-6.5) Lymphocytes # (Auto) 3.74 K/uL (1.2-3.4) Monocytes # (Auto) 0.75 K/uL (0.11-0.59) Eosinophils # (Auto) 0.24 K/uL (0-0.5) Basophils # (Auto) 0.10 K/uL (0-0.2) RDW Standard Deviation 39.7 fL (36.4-46.3) RDW Coefficient of Variation 12.5 % (11.5-14.5) Immature Granulocyte % (Auto) 0.2 % Immature Granulocyte # (Auto) 0.02 K/uL (0.00-0.02) Anion Gap 4.0 mmol/L (3-11) Est Creatinine Clear Calc Drug Dose 71.4 ml/min Estimated GFR () 91.1 Estimated GFR (Non- 78.6 BUN/Creatinine Ratio 5.3 (10-20) Calcium Level 8.8 mg/dl (8.5-10.1) Total Bilirubin 0.4 mg/dl (0.2-1) Direct Bilirubin < 0.1 mg/dl (0-0.2) Aspartate Amino Transf (AST/SGOT) 19 U/L (15-37) Alanine Aminotransferase (ALT/SGPT) 27 U/L (12-78) Alkaline Phosphatase 76 U/L (45-117) Troponin I < 0.015 ng/ml (0-0.045) Total Protein 7.2 gm/dl (6.4-8.2) Albumin 4.4 gm/dl (3.4-5.0) Lipase 86 U/L (73-393) Bedside D-Dimer 113 ng/mlFEU (0-450) Bedside Troponin I < 0.030 ng/ml (0-0.045) Medications Administered Medications (Trade) Dose Ordered Sig/Jenna Route Start Time Stop Time Status Last Admin Dose Admin Ketorolac Tromethamine (Toradol Inj) 15 mg NOW STAT IV 01/25/18 21:29 01/25/18 21:32 DC 01/25/18 21:36 15 MG ED Course Prior records/ancillary studies reviewed. Triage Nursing notes reviewed. The patient's history was concerning for chest pain. Differential diagnosis: Etiologies such as cardiac ischemia, aortic dissection, pulmonary embolism, pneumonia, pneumothorax, musculoskeletal, infections, pericarditis, myocarditis , esophageal rupture, gastrointestinal, as well as others were entertained. Physical examination: As above. ER treatment provided: Toradol On reassessment the patient felt better. Diagnostic interpretation by me: The electrocardiogram was negative for pathologic change. Normal sinus, normal intervals, no acute ST-T wave changes. Impression normal sinus rhythm interpreted by myself The labs revealed negative troponin. Negative d-dimer. Mild hyperglycemia without DKA Imaging studies: Chest x-ray with no acute consolidation, pneumothorax or free air HEART SCORE: Hx: high/mod/low suspicion: 0 ECG: ST depression/nonspecific changes/normal: 0 Age: Greater than 65/45-64/less than 45: 0 Risk factors: (Hypertension, hyperlipidemia, diabetes, coronary disease, tobacco use, cocaine use): 1 Troponin: Greater than 2 times normal limits/1-2 times normal limits/normal: 0 Total: 1 Symptoms of DVT 3pt: 0 Alternative diagnoses better explains illness 3pts: 0 Tachycardia greater than 100 1.5 pts 0 Immobilization greater than 3 days or surgery in the previous 4 weeks 1.5 pts: 0 Prior history of DVT or PE 1.5 pts: 0 Presence of hemoptysis 1pt: 0 Presence of malignancy 1pt: 0 (Score greater than 6 is high probability, score 2-6 moderate probability, score less than 2 low probability) Total: 0 Exam and history seem consistent with noncardiac chest pain. Symptoms are easily reproduced with palpation. Patient had a negative troponin and d-dimer. His symptoms of greater than 24 hours. He had a normal EKG. He was strongly encouraged to quit smoking. He was advised to follow-up with his family care doctor for further workup for slightly elevated blood sugar along with his symptoms that brought him to the ER today. He is advised to return to the ER immediately for chest pain, difficulty breathing, worsening signs or symptoms or as needed. He ambulated out of the ER without difficulties.By the evaluation outlined above emergent etiologies such as cardiac ischemia, aortic dissection, pulmonary embolism, pneumonia, pneumothorax, infections, pericarditis, myocarditis, gastrointestinal, as well as others were deemed relatively unlikely. The pt informed about the findings as listed above. All questions were answered and pleased with the treatment. Return instructions were outlined and the patient was discharged in stable condition. Referral: The patient was referred back to primary care physician for follow-up in 2 to 3 days for a recheck of the current condition. Case reviewed with my attending The chart was completed utilizing [employer] voice recognition software. Grammatical errors, random word insertions, pronoun errors, and incomplete sentences are an occassional consequence of this system due to software limitations, ambient noise, and hardware issues. Any formal questions or concerns about the content, text, or information contained within the body of this dictation should be directly addressed to the physician event sales assistant for clarification. Medical Decision As above Medication Reconcilliation Current Medication List: was personally reviewed by me Blood Pressure Screening Patient's blood pressure: Normal blood pressure Impression Primary Impression: Chest wall pain Additional Impressions: Hyperglycemia Back abrasion Low back pain Departure Information Dispostion Home / Self-Care Condition GOOD Prescriptions No Active Prescriptions or Reported Meds Forms IMPORTANT VISIT INFORMATION Patient Instructions Chest Pain - [facility], [facility], ED Abrasion Additional Instructions Abrasion: Antibiotic ointment and bandage to the areas until healed. Follow up with family doctor or return for any signs of infection (increasing redness, swelling , drainage, or fever). Keep covered when in sun until fully healed then SPF 50 or higher until scar healed. Chest pain: Your blood sugar was slightly elevated today. Recheck this with the family care doctor. Ibuprofen(Motrin, Advil) may be used for fever or pain. Use 600mg every six hours as needed. Take with food. Avoid using more than 2400mg in a 24 hour period. Do not use 2400mg per day for more than three consecutive days without physician direction. Prolonged inappropriate use can lead to stomach upset or ulcers. (AND/OR) Acetaminophen(Tylenol) may be used for fever or pain. Use 1000mg every six hours as needed. Avoid using more than 3000mg in a 24 hour period. Rest and drink plenty of fluids as tolerated. Continue current medications. Avoid strenuous activities and anything that worsens your pain. Resume normal activities once your symptoms resolve. Return to the ER immediately for worsening or persistent chest pain, abdominal pain, vomiting, fevers, chest pains, difficulty breathing, worsening of your condition, or as needed. Follow up with your primary physician in 2-3 days for a recheck of your current condition. Problem Qualifiers
== END 2018-01-25 23:18 | disposition home or self-care (01) ==
LOC: C.EDB 21:03 → C.EDC 23:18
DX: R07.89 Other chest pain (principal); R73.9 Hyperglycemia, unspecified; S30.810A Abrasion of lower back and pelvis, initial encounter; M54.5 Low back pain; W45.8XXA Other foreign body or object entering through skin, initial encounter; F17.200 Nicotine dependence, unspecified, uncomplicated